=== PATIENT | female | born 1990 | race Caucasian/White ===

== ENCOUNTER 2018-08-13 17:04 | Emergency (ER) | payer OTHER, MEDICAID ==
[~2018-08-13] VITALS: Ht 160 cm; Wt 62.1 kg
[~2018-08-13 17:04] MED LIST: AMOXICILLIN 50500 MG PO; AMOXICILLIN500 M1 PO; ATIVAN0.5 MG; BACTRIM DS TAB1 EACH PO; CIPROFLOXACIN500 M1 PO; CVS PRENATAL M1 EACH PO; DIFLUCAN150 MG PO; DOXYCYCLINE 10100 M1 PO; FLAGYL500 MG PO; FLOMAX PO; KEFLEX500 MG PO; LORTABELXR PO; MEDROLDOSEPACK PO; NAPROXEN 375 M375 M1 PO; NITROFURANTOIN100 MG PO; NOHOMEMEDICATIONS; NORCO 5-325 TA1 EACH PO; NUVARING VAGIN1 EACH; NYSTATIN-TRIAMC15 G1 TP; PENICILLIN VK500 M1 PO; PERCOCET 5-3251 EACH PO; PEXEVA20 MG; PHENERGAN 25 MG25 M1 PO; PRENATAL; PRENATAL COMPL1 EACH PO; PYRIDIUM200 MG PO; RANITIDINE; SENOKOT-S1 TA1; ZANTAC 150MG T150 M1 PO; ZOVIRAX200 MG PO; ZYRTEC 10 MG TA10 MG
[2018-08-13] MEDS ORDERED: TRAZODONE HCL50 MG PO (17:21)
[2018-08-13] MEDS ORDERED: ABILIFY 5 MG TAB5 MG PO (17:22)
[2018-08-13 17:45] LABS: ABSOLUTE EOSINOPHILS 0.1 thou/uL (0.0-0.7); ABSOLUTE LYMPHOCYTES 1.3 thou/uL (0.8-5.3); ABSOLUTE MONOCYTES 0.3 thou/uL (0.0-1.2); ABSOLUTE NEUTROPHILS 5.3 thou/uL (1.6-8.1); BASOPHILS 0.3 %; EOSINOPHILS 0.9 %; HEMATOCRIT 41.5 % (37.0-47.0); HEMOGLOBIN 13.8 gm/dL (12.0-15.0); MCH 29.7 pg (26.0-34.0); MCHC 33.2 g/dL (28.0-37.0); MCV 89.4 fL (80.0-100.0); MONOCYTES 3.8 %; MPV 8.6 fl. (7.2-11.1); NUCLEATED RBCS 0 /100WBC; PLATELET COUNT* 153 thou/uL (150-400); RBC 4.64 mil/uL (4.20-5.00); RDW-CV 12.9 % (10.5-14.5); WBC 6.9 thou/uL (4.0-11.0)
[2018-08-13 17:53] LABS: CREATININE 0.8 mg/dL (0.6-1.3)
[2018-08-13 17:57] LABS: ALBUMIN 3.9 g/dL (3.4-5.0); MAGNESIUM 2.1 mg/dL (1.8-2.4); TOTAL BILIRUBIN 0.3 mg/dL (<0.1-1.0); TOTAL PROTEIN 6.8 g/dL (6.4-8.2)
[2018-08-13 18:45] LABS: URINE BILIRUBIN NEGATIVE (Negative); URINE BLOOD NEGATIVE (Negative); URINE CLARITY CLOUDY; URINE COLOR YELLOW; URINE GLUCOSE-RANDOM NEGATIVE (Negative); URINE KETONES TRACE (Negative); URINE LEUKOCYTES-REFLEX TRACE (Negative); URINE NITRITE-REFLEX NEGATIVE (Negative); URINE PROTEIN NEGATIVE (Negative)
[2018-08-13 18:53] LABS: MUCUS 4-6 Moderate strn/LPF (None Seen); SQUAMOUS >10 Many /LPF (0-3)
[2018-08-13 18:54] LABS: AMORPHOUS URATES Moderate /LPF (None Seen); BACTERIA-REFLEX 1-9 Few /HPF (None Seen); CASTS None Seen /LPF (None Seen); URINE RBC None Seen /HPF (0-2); URINE WBC-REFLEX 0-5 Rare /HPF (0-5)
[2018-08-13 18:59] LABS: AMP/METHAMP Negative (Negative); BARBITURATES Negative (Negative); BENZODIAZEPINES Negative (Negative); COCAINE Negative (Negative); METHADONE Negative (Negative); OPIATES Negative (Negative); PCP Negative (Negative); THC Negative (Negative)
[2018-08-13 19:25] VITALS: BP 133/82
--- NOTE | 2018-08-14 11:11 | EKG ---
[place] [address] ELECTROCARDIOGRAM REPORT Name: DANIEL LAWRENCE Room: [facility]#: [id number] Admission: 08/13/18 Attend Phys: Discharge: 08/13/18 Date of : [birth year] Report #: [id number] THIS REPORT FOR: //name// [facility] ED Test Date: 2018-08-13 Test Time: 17:46:28 Pat Name: DANIEL LAWRENCE Department: Room: Gender: F Director Of Event Sales: : 1990 Requested By: Jermain Bearden Order Number: [id number] MD: Michael Oneill Measurements Intervals [place] Rate: 81 P: 77 NE: 140 QRS: 70 QRSD: 89 T: 48 QT: 363 QTc: 422 Interpretive Statements Sinus rhythm No previous ECG available for comparison Electronically Signed On 08-14-2018 11:11:26 CDT by Michael Oneill [email or web address] <ELECTRONICALLY SIGNED> By: Michael Oneill MD, [facility] 08/14/18 1111 [id number] [id number] Michael Oneill MD, FACC /EPI
== END 2018-08-13 19:25 | disposition home or self-care (01) ==
LOC: M.ERS 17:04
PROVIDERS: Nurse Practitioner Psychiatric/Mental Health
DX: R55 Syncope and collapse (principal); T43.625A Adverse effect of amphetamines, initial encounter; F32.9 Major depressive disorder, single episode, unspecified; F41.9 Anxiety disorder, unspecified; Z90.49 Acquired absence of other specified parts of digestive tract; Z90.89 Acquired absence of other organs

== ENCOUNTER 2018-08-20 14:47 | Emergency (ER) | payer OTHER, MEDICAID ==
[~2018-08-20] VITALS: Ht 165.1 cm; Wt 65.8 kg
[~2018-08-20 14:47] MED LIST changes: +ABILIFY 5 MG TAB5 MG PO; +TRAZODONE HCL50 MG PO
[2018-08-20 15:04] LABS: URINE BILIRUBIN NEGATIVE (Negative); URINE BLOOD TRACE (Negative); URINE CLARITY CLEAR; URINE COLOR YELLOW; URINE GLUCOSE-RANDOM NEGATIVE (Negative); URINE KETONES NEGATIVE (Negative); URINE LEUKOCYTES-REFLEX 1+ (Negative); URINE NITRITE-REFLEX NEGATIVE (Negative); URINE PROTEIN NEGATIVE (Negative); URINE SPECIFIC GRAVITY 1.025 (1.005-1.030); URINE UROBILINOGEN 0.2 E.U./dl (0.2-1.0)
[2018-08-20 15:14] LABS: MUCUS None Seen strn/LPF (None Seen); SQUAMOUS >10 Many /LPF (0-3)
[2018-08-20 15:15] LABS: BACTERIA-REFLEX 1-9 Few /HPF (None Seen); CASTS None Seen /LPF (None Seen); URINE RBC 0-2 Rare /HPF (0-2); URINE WBC-REFLEX 0-5 Rare /HPF (0-5)
[2018-08-20 15:16] LABS: CRYSTALS None Seen /LPF (None Seen)
[2018-08-20 16:14] VITALS: BP 116/74
== END 2018-08-20 16:15 | disposition home or self-care (01) ==
LOC: M.ERS 14:47
PROVIDERS: Physician Assistant
DX: N72 Inflammatory disease of cervix uteri (principal); F41.9 Anxiety disorder, unspecified; F32.9 Major depressive disorder, single episode, unspecified; Z90.49 Acquired absence of other specified parts of digestive tract

== ENCOUNTER 2018-09-30 16:30 | Emergency (ER) | payer OTHER, MEDICAID ==
[~2018-09-30] VITALS: Ht 160 cm; Wt 63.5 kg
[2018-09-30 17:01] LABS: URINE BILIRUBIN NEGATIVE (Negative); URINE BLOOD 3+ (Negative); URINE CLARITY CLEAR; URINE COLOR YELLOW; URINE GLUCOSE-RANDOM NEGATIVE (Negative); URINE KETONES NEGATIVE (Negative); URINE LEUKOCYTES-REFLEX 1+ (Negative); URINE NITRITE-REFLEX NEGATIVE (Negative); URINE PROTEIN NEGATIVE (Negative); URINE SPECIFIC GRAVITY 1.015 (1.005-1.030); URINE UROBILINOGEN 0.2 E.U./dl (0.2-1.0)
[2018-09-30 17:16] LABS: BACTERIA-REFLEX 1-9 Few /HPF (None Seen); CASTS None Seen /LPF (None Seen); CRYSTALS None Seen /LPF (None Seen); MUCUS None Seen strn/LPF (None Seen); SQUAMOUS >10 Many /LPF (0-3); URINE WBC-REFLEX 6-15 Few /HPF (0-5)
[2018-09-30] MEDS ORDERED: BACTRIM DS TAB1 EACH PO (17:23)
[2018-09-30 18:01] VITALS: BP 105/62
== END 2018-09-30 18:01 | disposition home or self-care (01) ==
LOC: M.ERS 16:30
PROVIDERS: Nurse Practitioner Psychiatric/Mental Health
DX: N39.0 Urinary tract infection, site not specified (principal); F41.9 Anxiety disorder, unspecified; F32.9 Major depressive disorder, single episode, unspecified; Z90.49 Acquired absence of other specified parts of digestive tract

== ENCOUNTER 2018-10-19 16:37 | Emergency (ER) | payer OTHER, MEDICAID ==
[~2018-10-19] VITALS: Ht 160 cm; Wt 62.6 kg
[2018-10-19 17:05] LABS: URINE BILIRUBIN NEGATIVE (Negative); URINE BLOOD NEGATIVE (Negative); URINE CLARITY CLEAR; URINE COLOR YELLOW; URINE GLUCOSE-RANDOM NEGATIVE (Negative); URINE KETONES NEGATIVE (Negative); URINE LEUKOCYTES-REFLEX 1+ (Negative); URINE NITRITE-REFLEX NEGATIVE (Negative); URINE PROTEIN NEGATIVE (Negative); URINE UROBILINOGEN 0.2 E.U./dl (0.2-1.0)
[2018-10-19 17:14] LABS: BACTERIA-REFLEX 1-9 Few /HPF (None Seen); CASTS None Seen /LPF (None Seen); CRYSTALS None Seen /LPF (None Seen); SQUAMOUS 0-3 Few /LPF (0-3); URINE RBC 0-2 Rare /HPF (0-2); URINE WBC-REFLEX 6-15 Few /HPF (0-5)
[2018-10-19] MEDS ORDERED: PYRIDIUM100 M1 PO (17:38)
[2018-10-19] MEDS ORDERED: AUGMENTIN 875-1 EACH PO (17:38)
[2018-10-19 17:52] VITALS: BP 103/62
== END 2018-10-19 17:52 | disposition home or self-care (01) ==
LOC: M.ERS 16:37
PROVIDERS: Nurse Practitioner Family
DX: N39.0 Urinary tract infection, site not specified (principal); F41.9 Anxiety disorder, unspecified; F32.9 Major depressive disorder, single episode, unspecified; Z90.49 Acquired absence of other specified parts of digestive tract

== ENCOUNTER 2018-12-11 16:14 | Emergency (ER) | payer OTHER, MEDICAID ==
[~2018-12-11] VITALS: Ht 160 cm; Wt 64.4 kg
[~2018-12-11 16:14] MED LIST changes: +AUGMENTIN 875-1 EACH PO; +PYRIDIUM100 M1 PO
[2018-12-11 17:20] LABS: URINE BILIRUBIN NEGATIVE (Negative); URINE BLOOD NEGATIVE (Negative); URINE CLARITY CLEAR; URINE COLOR YELLOW; URINE GLUCOSE-RANDOM NEGATIVE (Negative); URINE KETONES TRACE (Negative); URINE LEUKOCYTES-REFLEX NEGATIVE (Negative); URINE NITRITE-REFLEX NEGATIVE (Negative); URINE PROTEIN NEGATIVE (Negative); URINE SPECIFIC GRAVITY >= 1.030 (1.005-1.030); URINE UROBILINOGEN 0.2 E.U./dl (0.2-1.0)
[2018-12-11 18:05] VITALS: BP 104/49
== END 2018-12-11 18:06 | disposition home or self-care (01) ==
LOC: M.ERS 16:14
PROVIDERS: Nurse Practitioner Family
DX: M54.9 Dorsalgia, unspecified (principal); F41.9 Anxiety disorder, unspecified; F32.9 Major depressive disorder, single episode, unspecified; F17.210 Nicotine dependence, cigarettes, uncomplicated; Z90.49 Acquired absence of other specified parts of digestive tract

== ENCOUNTER 2019-02-26 19:32 | Emergency (ER) | payer OTHER, MEDICAID ==
[~2019-02-26] VITALS: Ht 167.6 cm; Wt 56.7 kg
[2019-02-26 20:35] LABS: URINE BILIRUBIN NEGATIVE (Negative); URINE BLOOD TRACE (Negative); URINE CLARITY CLEAR; URINE COLOR YELLOW; URINE GLUCOSE-RANDOM NEGATIVE (Negative); URINE KETONES NEGATIVE (Negative); URINE LEUKOCYTES-REFLEX NEGATIVE (Negative); URINE NITRITE-REFLEX NEGATIVE (Negative); URINE PROTEIN NEGATIVE (Negative); URINE SPECIFIC GRAVITY 1.025 (1.005-1.030); URINE UROBILINOGEN 0.2 E.U./dl (0.2-1.0)
[2019-02-26] MEDS ORDERED: BACTRIM DS TAB1 EACH PO (20:58)
[2019-02-26 21:13] VITALS: BP 110/64
== END 2019-02-26 21:14 | disposition home or self-care (01) ==
LOC: M.ERS 19:32
PROVIDERS: Emergency Medicine
DX: R31.9 Hematuria, unspecified (principal); M54.5 Low back pain; R10.30 Lower abdominal pain, unspecified; F41.9 Anxiety disorder, unspecified; F32.9 Major depressive disorder, single episode, unspecified; Z90.49 Acquired absence of other specified parts of digestive tract

== ENCOUNTER 2019-03-26 12:48 | Emergency (ER) | payer OTHER, MEDICAID | END 2019-03-26 13:06 | disposition home or self-care (01) | LOC: M.ERS 12:48 | DX: Z53.21 Procedure and treatment not carried out due to patient leaving prior to being seen by health care provider (principal) ==

== ENCOUNTER 2019-04-15 12:15 | Emergency (ER) | payer OTHER, MEDICAID ==
[~2019-04-15] VITALS: Ht 160 cm; Wt 62.6 kg
[2019-04-15] MEDS ORDERED: FLAGYL500 M1 PO (12:24)
[2019-04-15 12:36] LABS: URINE BILIRUBIN NEGATIVE (Negative); URINE BLOOD TRACE (Negative); URINE CLARITY CLEAR; URINE COLOR YELLOW; URINE GLUCOSE-RANDOM NEGATIVE (Negative); URINE KETONES NEGATIVE (Negative); URINE LEUKOCYTES-REFLEX TRACE (Negative); URINE NITRITE-REFLEX NEGATIVE (Negative); URINE PROTEIN NEGATIVE (Negative); URINE SPECIFIC GRAVITY 1.025 (1.005-1.030); URINE UROBILINOGEN 0.2 E.U./dl (0.2-1.0)
[2019-04-15 12:44] LABS: BACTERIA-REFLEX 1-9 Few /HPF (None Seen); CASTS None Seen /LPF (None Seen); CRYSTALS None Seen /LPF (None Seen); MUCUS 0-3 Light strn/LPF (None Seen); SQUAMOUS 4-10 Moderate /LPF (0-3); URINE RBC 3-10 Few /HPF (0-2); URINE WBC-REFLEX 0-5 Rare /HPF (0-5)
[2019-04-15 13:13] VITALS: BP 121/74
== END 2019-04-15 13:14 | disposition left against medical advice (07) ==
LOC: M.ERS 12:15
PROVIDERS: Physician Assistant
DX: N76.0 Acute vaginitis (principal); Z90.49 Acquired absence of other specified parts of digestive tract

== ENCOUNTER 2020-01-31 16:45 | Emergency (ER) | payer OTHER, MEDICAID ==
[~2020-01-31] VITALS: Ht 160 cm; Wt 66.2 kg
[~2020-01-31 16:45] MED LIST changes: +FLAGYL500 M1 PO
[2020-01-31] MEDS ORDERED: ADDERALL 10 MG10 MG PO (16:53)
[2020-01-31] MEDS ORDERED: LEXAPRO 10 MG T10 M1 PO (16:53)
[2020-01-31] MEDS ORDERED: ATIVAN0.5 M1 PO (16:54)
[2020-01-31 18:31] VITALS: BP 119/91
--- NOTE | 2020-02-01 16:10 | EKG ---
[place] [address] ELECTROCARDIOGRAM REPORT Name: DANIEL LAWRENCE Room: [facility]#: [id number] Admission: 01/31/20 Attend Phys: Discharge: 01/31/20 Date of : [birth year] Date of Service: 01/31/201651 Report #: [id number] THIS REPORT FOR: //name// [facility] ED Test Date: 2020-01-31 Test Time: 16:52:56 Pat Name: DANIEL LAWRENCE Department: Room: Gender: F [employer]st: UNKNOWN : 1990 Requested By: Elver Moran Order Number: [id number] MD: Patrice Huang Measurements Intervals [place] Rate: 87 P: 68 [place]: 119 QRS: 72 QRSD: 91 T: 28 QT: 365 QTc: 439 Interpretive Statements Sinus rhythm Borderline short [place] interval Borderline T wave abnormalities Compared to ECG 08/13/2018 17:46:28 T-wave abnormality now present Electronically Signed On 02-01-2020 16:10:37 DRUM PULLER by Patrice Huang [email or web address] <ELECTRONICALLY SIGNED> By: Patrice Huang MD, [facility] 02/01/20 1610 1652 165 Patrice Huang MD, [facility] /EPI
== END 2020-01-31 18:32 | disposition left against medical advice (07) ==
LOC: M.ERS 16:45
DX: R07.89 Other chest pain (principal); M79.602 Pain in left arm; Z53.21 Procedure and treatment not carried out due to patient leaving prior to being seen by health care provider; F32.9 Major depressive disorder, single episode, unspecified; F41.9 Anxiety disorder, unspecified; Z90.49 Acquired absence of other specified parts of digestive tract